=== PATIENT | male | born 1950 | race Asian ===

== ENCOUNTER 2023-08-24 19:25 | Inpatient (IN) | payer OTHER, SELFPAY ==
[2023-08-24 14:43] VITALS: BP 143/81
[2023-08-24 15:08] LABS: % Basophils 0.5 % (0-2); % Eosinophils 4.5 % (0-6); % Immature Granulocytes 0.3 % (0-0.5); % Lymphocytes 36.8 % (20.5-51.1); % Monocytes 8.5 % (1.7-9.3); % Neutrophils 49.4 % (42.2-75.2); Absolute Eosinophils 0.2 10^3/uL (0-0.7); Absolute Lymphocytes 1.5 10^3/uL (1.2-3.4); Absolute Monocytes 0.3 10^3/uL (0.1-0.6); Hematocrit 36.5 % (39.0-52.0); Hemoglobin 12.6 g/dL (13.0-18.0); Mean Corp Hgb Conc. 34.5 g/dL (33.0-37.0); Mean Corpuscular Hgb 32.3 pg (27.0-31.0); Mean Corpuscular Volume 93.6 fL (80.0-94.0); Mean Platelet Volume 11.3 fL (7.4-10.4); Nucleated Red Blood Cells % 0 % (-); Platelet Count 169 10^3/uL (130-400); Red Cell Dist. Width 13.2 % (11.5-14.5)
[2023-08-24 15:35] LABS: ALT (SGPT) 23 U/L (0-50); AST (SGOT) 36 U/L (17-59); Alkaline Phosphatase 56 U/L (38-126); Blood Urea Nitrogen 23 mg/dl (9-20); Calcium 9.8 mg/dl (8.4-10.2); Carbon Dioxide 25 mmol/L (22-30); Chloride 107 mmol/L (98-107); Glucose 129 mg/dl (70-99); Potassium 3.8 mmol/L (3.5-5.1); Sodium 140 mmol/L (135-145); Total Bilirubin 0.8 mg/dl (0.2-1.3); Total Protein 7.2 g/dl (6.3-8.2); eGFR > 60.00
[2023-08-24 15:40] LABS: Troponin I < 0.012 ng/ml
[2023-08-24 15:47] LABS: Albumin 4.9 g/dl (3.5-5.0)
[2023-08-24 18:03] VITALS: BMI 26.3
[2023-08-24 18:07] VITALS: BP 137/85
--- NOTE | 2023-08-24 18:12 | ED.GENMED ---
History of Present Illness
General
Chief Complaint: Dizziness
Source: patient
Exam Limitations: none
Time Seen by Provider: 08/24/23 17:59
Nursing documentation reviewed up to this point in time: agreed with
Travel History
Have you had any contact with someone who has COVID-19?: No
Do you have any symptoms of coronavirus? Fever > 100 degrees, chills, cough, shortness of breath, sore throat, loss of taste or smell, muscle aches, or headache?: No
History of Present Illness
History of Present Illness:
72 y/o M with h/o CABG x 3 20 years ago
followed by a online journalist at [facility], named dr. Nice
has josr having ongoing lightheadedness, raven with walking
no cp, sob
he followed up with dr. nice on august 10 and has been wearing a holter monitor
got a notiication toay from the office saying that he needed to come tot he ER because he could have possibly been in heart block.
pt is not having any symptoms currently
denies cp,sob, syncope, vomiting, fever
Past History
Past History
ED Past Medical History: CAD, HTN, Hypercholesterolemia and NIDDM
ED Past Surgical History: Cardiac (CABG)
Social History
Tobacco: Non-smoker
Alcohol: Occasional
Drug: None
Personal:
Living: with family
Review of Systems
Review of Systems
Allergies reviewed?: Yes
All Other Systems: Not applicable
Phy Exam
Physical Exam
Physical Exam:
GENERAL: Alert , in no apparent distress
EYE: pupils equal and reactive
NECK: Supple
ENT: o/p clr, mmm.
CARDIAC: aj, minimal edema, no murmur
LUNGS: Clear breath sounds bilaterally, no acute respiratory distress, no wheezes/rales/rhonchi
ABDOMEN: Soft, without focal tenderness, no r/g, no cvat, normal bowel sounds
NEUROLOGICAL: Alert and oriented, no focal neuro deficits
SKIN: Warm and dry, skin intact.
MUSCULOSKELETAL: No edema, well perfused. neg nima's sign
PSYCH: Normal and appropriate interaction.
Course
Orders/Labs/Results
Orders:
Orders
08/24/23 14:47
Electrocardiogram (*1) Urgent
Reason for Study: Vertigo / Dizzy
EKG- Treatment ONCE
08/24/23 15:00
Complete Blood Count/With Diff Urgent
Comprehensive Metabolic Panel Urgent
Magnesium Urgent
TSH Reflex To Free T4 Urgent
Comment: ADD ON
Troponin I Urgent
08/24/23 18:18
Electrocardiogram (*1) Urgent
Reason for Study: Bradycardia / Tachycardia
EKG- Treatment ONCE
08/24/23 18:19
Add On- LAB Urgent
Tests Added?: tsh reflex t4, magnesium
08/24/23 18:46
Admit/Transfer Patient As Directed
Co-Sign Provider:
Level of Care: Inpatient admission
Assign to:: IVU
Physician / Group: saumya
Diagnosis: symptomatic heart block
Reason for Hospitalization: symptomatic heart block
Expected length of stay greater than two midnights?: Yes
ELOS- Estimated Length of Stay in days: 2
I certify the patient meets the requirements for IP care: Yes
Code Status As Directed
Resuscitation Status: Full Code
Abnormal Lab Results
08/24/23
15:00
WBC 4.0 L 10^3/uL
(4.8-10.8)
RBC 3.90 L 10^6/uL
(4.70-6.10)
Hgb 12.6 L g/dL
(13.0-18.0)
Hct 36.5 L %
(39.0-52.0)
MCH 32.3 H pg
(27.0-31.0)
MPV 11.3 H fL
(7.4-10.4)
BUN 23 H mg/dl
(9-20)
Glucose 129 H mg/dl
(70-99)
08/24/23 15:00
08/24/23 15:00
Vital Signs
Initial and Last Documented VS:
Initial Vital Signs
Temp Pulse Resp BP Pulse Ox
98 F 65 18 143/81 98
08/24/23 14:43 08/24/23 14:43 08/24/23 14:43 08/24/23 14:43 08/24/23 14:43
Last Documented Vital Signs
Temp Pulse Resp BP Pulse Ox
98 F 58 11 137/85 100
08/24/23 14:43 08/24/23 18:45 08/24/23 18:45 08/24/23 18:07 08/24/23 18:45
MDM/Problems Addressed
Differential Diagnosis Includes:
heart block, orthostatic hypotension
MDM/Problems Addressed:
72-year-old male status post remote CABG presents after being called by the online journalist office saying that his Holter monitor was suspicious for complete heart block. Patient has been having episodic lightheadedness especially with walking over
the last several weeks to months. Apparently he had this also last year but was in a first-degree block. He he has been wearing a Holter since August 10. He has had no syncope, chest pain, shortness of breath. Today around 1 PM the family got a
phone call from the online journalist office saying he needed to come to the ER and that his [facility] online journalist Dr. Nice had notified Dr. Jean Baptiste from [facility] and that the patient would be admitted for pacemaker. He is hemodynamically stable currently
without symptoms. His initial EKG looks like first degrees block sinus bradycardia with a pause however on the monitor it does look suspicious for complete heart block. I spoke with the on-call online journalist Dr. Surya valdez who is aware of him
and said that he should be placed in the IVU, n.p.o. after midnight and they will see him in the morning.
*Critical Care Note
Total Time (30-74mins, 75-104mins- exclusive of procedures): Not Applicable
ED Attending Note
-
Portions of this chart may have been created with voice recognition software.� Occasional wrong word or��sound alike� substitutions may have occurred due to the inherent limitations of voice recognition software.
Discharge Plan
Departure
Patient Disposition: Admit
Date of Disposition: 08/24/23
Time of Disposition: 18:19
Admit to: IVU
Presentation/result/management discussed w/ accepting MD/DO: Hospitalist
Patient with high blood pressure during this ER visit?: No
Condition: Fair
Covid-19: Not Applicable
Discharge Problem:
Complete heart block
Prescriptions:
No Action
latanoprost 0.005 % Drops
1 drp BOTH EYES HS
metformin 500 mg Tablet
500 mg PO BID
carvedilol 25 mg Tablet
25 mg PO BID
amlodipine 2.5 mg Tablet
2.5 mg PO BID
aspirin 81 mg Tablet,Delayed Release (Dr/Ec)
81 mg PO HS
gemfibrozil 600 mg Tablet
600 mg PO BID
dorzolamide-timolol 22.3-6.8 mg/mL Drops
1 drp BOTH EYES BID
allopurinol 300 mg Tablet
300 mg PO BID
telmisartan 20 mg Tablet
20 mg PO HS
ezetimibe 10 mg Tablet
10 mg PO DAILY
rosuvastatin 10 mg Tablet
10 mg PO DAILY
Interventions
Interventions:
*Risk Screen - Suicide Last Done: 08/24/23 18:03
*General Assessment Last Done: 08/24/23 18:03
*Neglect/Abuse Screening Last Done: 08/24/23 18:03
ED- Fall Risk Assessment Last Done: 08/24/23 18:03
*ED COVID-19 Vaccine History Last Done: 08/24/23 18:03
ED- Cardiac Assessment Last Done: 08/24/23 18:03
ED- Neurological Assessment Last Done: 08/24/23 18:03
ED Swallowing Screen Last Done: 08/24/23 18:50
Discharge Date and Time
Print Language: English
--- NOTE | 2023-08-24 18:50 | HPS.HSE ---
Family Physician
-
Family Physician:
Chief Complaint
-
dizziness
History of Present Illness
72-year-old Bengali speaking male past medical history of CABG 20 years ago, hypertension, type 2 diabetes, hyperlipidemia, gout presenting for lightheadedness with walking ongoing for the past year. History obtained from patient's daughter.
Dizziness occurs with exertion or any light changes in position. No chest pain or shortness of breath. His paper machine back tender is Dr. Cantu at [facility] who he saw on August 10 and has been wearing a Holter monitor. Today he received a call from their
office stating that he needed to come to the ER because she could have been in heart block. Patient denies any symptoms currently.
Medical History
Past Medical History
Past Medical History: Reports Other (CABG 20 years ago, hypertension, type 2 diabetes, hyperlipidemia, gout)
Past Surgical History: Reports Other (CABG )
Social History
Tobacco: Non-smoker
Alcohol: Occasional
Drug: None
Family History
Family History: Not pertinent
Allergies / Home Medications
Allergies reflects when Allergies were last updated in [employer].
Home Medications with original date entered in [employer]
Allergy/Medication List:
Allergies
Allergy/AdvReac Type Severity Reaction Status Date / Time
No Known Allergies Allergy Unverified 08/24/23 14:42
Home Medications
allopurinol 300 mg tablet 300 mg PO BID 08/24/23
amlodipine 2.5 mg tablet 2.5 mg PO BID 08/24/23
aspirin 81 mg tablet,delayed release 81 mg PO HS 08/24/23
carvedilol 25 mg tablet 25 mg PO BID 08/24/23
dorzolamide 22.3 mg-timolol 6.8 mg/mL eye drops 1 drp BOTH EYES BID 08/24/23
ezetimibe 10 mg tablet 10 mg PO DAILY 08/24/23
gemfibrozil 600 mg tablet 600 mg PO BID 08/24/23
latanoprost 0.005 % eye drops 1 drp BOTH EYES HS 08/24/23
metformin 500 mg tablet 500 mg PO BID 08/24/23
rosuvastatin 10 mg tablet 10 mg PO DAILY 08/24/23
telmisartan 20 mg tablet 20 mg PO HS 08/24/23
Review of Systems
-
History Source: Patient
A 12 point ROS was completed and negative except as noted: Yes
Constitutional: Reports No Symptoms
EENT: Reports No Symptoms
Respiratory: Reports No Symptoms
Cardiac: Reports No Symptoms
Abdomen/GI: Reports No Symptoms
: Reports No Symptoms
Musculoskeletal: Reports No Symptoms
Skin: Reports No Symptoms
Neurological: Reports No Symptoms
Endocrine: Reports No Symptoms
Hematologic/Lymphatic: Reports No Symptoms
Psych: Reports No Symptoms
Physical Exam
Vital Signs
Vital Signs
Temp Pulse Resp BP Pulse Ox
98 F 65 17 137/85 99
08/24/23 14:43 08/24/23 18:30 08/24/23 18:30 08/24/23 18:07 08/24/23 18:30
Physical Exam
General: Well Developed, Well Nourished and No Apparent Distress
HEENT: NormoCephalic, Moist mucous membranes and Atraumatic
Respiratory: Clear
Cardiac: S1/S2 and Regular Rhythm; No Murmur or Rub
GI: Soft, Non Tender, Non Distended and Normal Bowel Sounds; No Organomegaly
Rectal: Deferred by Provider
Musculoskeletal: No Clubbing, No Cyanosis and No Edema
Skin: No Rash
Neuro: Nonfocal/grossly intact
Laboratory Results
-
08/24/23 15:00
08/24/23 15:00
Laboratory Results
Total Bilirubin 0.8 mg/dl (0.2-1.3) 08/24/23 15:00
AST 36 U/L (17-59) 08/24/23 15:00
ALT 23 U/L (0-50) 08/24/23 15:00
Alkaline Phosphatase 56 U/L (38-126) 08/24/23 15:00
Troponin I < 0.012 ng/ml 08/24/23 15:00
Data Reviewed
-
Lab Data: Labs Reviewed by me
Old Records: Reviewed
Impression/Plan
-
IMPRESSION:
PLAN:
# Symptomatic possibly complete heart block exacerbated by Coreg
-EKG shows sinus bradycardia with first-degree AV block
-Patient hemodynamically stable without symptoms at this time
-P.o. pastmidnight for possible pacemaker tomorrow
-Hold Coreg
-Cardiology consulted
# Leukopenia unknown chronicity
-Outpatient follow-up
CAD status post CABG
-Continue aspirin
-Hold Coreg
Essential hypertension
-Continue amlodipine, telmisartan
Type 2 diabetes
-Hold metformin
-Insulin sliding scale
Hyperlipidemia
-Continue Zetia, gemfibrozil, statin
Gout
-Continue allopurinol
Full code
DVT prophylaxis�heparin
N.p.o. past midnight
[2023-08-24 18:51] LABS: Magnesium 2.1 mg/dl (1.6-2.3)
[2023-08-24 19:00] VITALS: BP 140/84
[2023-08-24 20:00] VITALS: BP 131/79
[2023-08-24 20:45] VITALS: BP 140/87
[2023-08-24 21:49] VITALS: BP 123/83
[2023-08-24] MEDS: NORVASC 2.5 MG PO (21:51)
[2023-08-24] MEDS: ASPIR LOW (ENTERIC COATED) 81 MG PO (21:51)
[2023-08-24] MEDS: COZAAR 25 MG PO (21:51)
[2023-08-24] MEDS: HEPARIN 5000 UNITS SC (21:51)
[2023-08-24] MEDS: ZYLOPRIM 300 MG PO (21:52)
[2023-08-24] MEDS: LOPID 600 MG PO (21:58)
[2023-08-24] MEDS: COSOPT EYE DROPS 1 DROP BOTH EYES (21:58)
[2023-08-24] MEDS: XALATAN OPHTHALMIC SOLUTION 1 DROP BOTH EYES (21:58)
[2023-08-24 22:18] LABS: Glucose - Point of Care 147 mg/dl (70-99)
[2023-08-24 22:24] VITALS: BMI 25.8
--- NOTE | 2023-08-24 22:28 | PTCARENOTE ---
Admission completed with the help of daughter BECK- [phone]. dgt. states that she will be here in the morning- after she drops her dgt off at school.
[2023-08-25] VITALS (8 sets, daily range): BP systolic 117–151; BP diastolic 73–92
[2023-08-25 05:09] LABS: % Basophils 0.2 % (0-2); % Eosinophils 4.5 % (0-6); % Immature Granulocytes 0.2 % (0-0.5); % Lymphocytes 41.5 % (20.5-51.1); % Monocytes 9.3 % (1.7-9.3); % Neutrophils 44.3 % (42.2-75.2); Absolute Eosinophils 0.2 10^3/uL (0-0.7); Absolute Lymphocytes 1.8 10^3/uL (1.2-3.4); Absolute Monocytes 0.4 10^3/uL (0.1-0.6); Hematocrit 36.5 % (39.0-52.0); Hemoglobin 12.5 g/dL (13.0-18.0); Mean Corp Hgb Conc. 34.2 g/dL (33.0-37.0); Mean Corpuscular Hgb 32.1 pg (27.0-31.0); Mean Corpuscular Volume 93.6 fL (80.0-94.0); Mean Platelet Volume 11.7 fL (7.4-10.4); Nucleated Red Blood Cells % 0 % (-); Platelet Count 191 10^3/uL (130-400); Red Cell Dist. Width 13.2 % (11.5-14.5); White Blood Cell Count 4.4 10^3/uL (4.8-10.8)
[2023-08-25 06:16] LABS: ALT (SGPT) 22 U/L (0-50); AST (SGOT) 28 U/L (17-59); Albumin 4.5 g/dl (3.5-5.0); Alkaline Phosphatase 58 U/L (38-126); Blood Urea Nitrogen 18 mg/dl (9-20); Calcium 8.9 mg/dl (8.4-10.2); Carbon Dioxide 23 mmol/L (22-30); Chloride 111 mmol/L (98-107); Estimated Creatinine Clearance 71 ml/min; Glucose 108 mg/dl (70-99); Potassium 4.1 mmol/L (3.5-5.1); Sodium 140 mmol/L (135-145); Total Bilirubin 0.9 mg/dl (0.2-1.3); Total Protein 6.7 g/dl (6.3-8.2); eGFR > 60.00
--- NOTE | 2023-08-25 06:54 | W.PN.HOSP.TC ---
Today's Communication/Plan
-
cont hold Coreg
NPO after midnight for PPM as per Cardio
glycemic control
blood pressure control
Assessment / Plan
Assessment / Plan
Physical Exam
General: Well Developed, Well Nourished and No Apparent Distress
HEENT: NormoCephalic, Moist mucous membranes and Atraumatic
Respiratory: Clear
Cardiac: S1/S2 and Regular Rhythm; No Murmur or Rub
GI: Soft, Non Tender, Non Distended and Normal Bowel Sounds; No Organomegaly
Musculoskeletal: No Clubbing, No Cyanosis and No Edema
Skin: No Rash
Neuro: Alert Oriented Conversant
72-year-old Kazakh speaking male past medical history of CABG 20 years ago, hypertension, type 2 diabetes, hyperlipidemia, gout here for lightheadedness dizziness outpt heart monitor concerning for symptomatic Bradycardia.
# Symptomatic possible complete heart block exacerbated by Coreg
-EKG showed sinus bradycardia with first-degree AV block
-Home Coreg on hold
-ECHO appreciated EF 55-60% no significant change from prior ECHO 2021
-Cardiology consult appreciated npo after midnight for pacemaker placement 08/25
# Leukopenia unknown chronicity
-monitor, trending up
CAD status post CABG
-Continue aspirin
-Hold Coreg
Essential hypertension
-Continue amlodipine, ARB
Type 2 diabetes
-A1c 6.8
-Hold metformin
-Insulin sliding scale
Hyperlipidemia
-Continue Zetia, gemfibrozil, statin
Gout
-Continue allopurinol
Full code
DVT prophylaxis�heparin
Discussed with patient, patient's daughter Abiodun who is also an ICU nurse, and Cardiology
I spent a total of 60 minutes with the patient or on the floor. More than 50% of this time involved counseling and coordination of care.
Anticipated Discharge: 24 - 48 hours
Subjective/Interval History
-
Date of Service: August 25, 2023
Seen an examined at bedside in no acute distress sitting up comfortably in chair. Daughter Nam present providing translation
Objective Data
-
Labs:
Laboratory Results
08/25/23 08/25/23
04:46 05:51
WBC 4.4 L
Hgb 12.5 L
Hct 36.5 L
Plt Count 191
Sodium Cancelled 140
Potassium Cancelled 4.1
Chloride Cancelled 111 H
Carbon Dioxide Cancelled 23
BUN Cancelled 18
Creatinine Cancelled 0.9
Glucose Cancelled 108 H
Calcium Cancelled 8.9
Total Bilirubin Cancelled 0.9
AST Cancelled 28
ALT Cancelled 22
Alkaline Phosphatase Cancelled 58
Vital Signs:
Vital Signs
Temp Pulse Resp BP Pulse Ox
97.8 F 66 18 127/74 98
08/25/23 04:54 08/25/23 04:41 08/25/23 04:54 08/25/23 04:41 08/25/23 04:54
[2023-08-25 07:10] LABS: Glucose - Point of Care 110 mg/dl (70-99)
--- NOTE | 2023-08-25 08:06 | CON.CAR ---
Addendum entered and electronically signed by Peter Gannon DO 08/25/23 16:42:
I saw and examined the patient.
The [employer] Developer [employer]'s note was reviewed and I agree with the note.
Comment:
Plan:
Patient had Zio monitor 07/2023 due to patient complaints of dizziness. This showed brief high grade av block and patient was referred to for evaluation for PPM.
Pt with 1st degree av block and wenckebach however no pauses or high grade av block with being off beta cruz.
Check echo
Could consider monitor off beta cruz however, if pt requires beta cruz as he has hx of CABG he may ultimately require a PPM.
EP reviewed and discussed PPM with pt and family. Plan if for PPM prior to d/c
Original Note:
Consultation
Consultation Request
Date/Time Consultation Performed: 08/25/23
Requesting Provider: Dr. Shell
Performing Provider: Mery Osorio PA-C for Dr. Gannon
Reason for Consultation: bradycardia, intermittent dizziness
Medical History
-
Chief Complaint: AV block
History of Present Illness:
Patient is a 72-year-old male with past medical history of CAD status post CABG x3 in 2000, hypertension, hyperlipidemia, diabetes who presented to [facility] for evaluation of abnormal heart rhythm by outpatient ZIO monitor, ordered by
patient's horologist, Dr. Do. He has a history of first-degree AV block and intermittent second-degree AV block by prior Holter monitor in 2021. He was seen by Dr. Ferrer on 08/11/2023 and complained of some intermittent dizziness. He reports this
is mostly associated with turning, or with standing up from a seated position. By review of ER record, also with walking although did not admit this to me. He denies near-syncope or syncope, CP, SOB. He had a 3-day ZIO monitor placed. He was noted
to have brief high-grade AV block noted on monitor, and referred to [facility] for possible PPM placement. He is on coreg 25mg BID as OP, last dose 4/1 AM. EKG SB with 1st degree av block. Denies recent medications, thyroid disease. Cardiology consulted
for evaluation.
PMH:
CABG x4 in 2000
HTN
HLD
DM2
History of retinal branch artery occlusion in R eye
Past Medical History
Past Medical History: Other (in HPI)
Social History
Tobacco: Non-Smoker
Alcohol: Occasional
Personal:
Living: With Family
Employment: Retired
Allergies / Home Medications
Allergy/AdvReac Type Severity Reaction Status Date / Time
No Known Allergies Allergy Unverified 08/24/23 14:42
�Medication �Instructions �Recorded �Confirmed �Type
allopurinol 300 mg tablet 300 mg PO BID Gout 08/24/23 08/24/23 History
amlodipine 2.5 mg tablet 2.5 mg PO BID Blood Pressure 08/24/23 08/24/23 History
aspirin 81 mg tablet,delayed 81 mg PO HS Blood Clot 08/24/23 08/24/23 History
release Prevention/Tx
carvedilol 25 mg tablet 25 mg PO BID Blood Pressure 08/24/23 08/24/23 History
dorzolamide 22.3 mg-timolol 6.8 1 drp BOTH EYES BID Eye Condition 08/24/23 08/24/23 History
mg/mL eye drops
ezetimibe 10 mg tablet 10 mg PO DAILY High Cholesterol 08/24/23 08/24/23 History
gemfibrozil 600 mg tablet 600 mg PO BID High Cholesterol 08/24/23 08/24/23 History
latanoprost 0.005 % eye drops 1 drp BOTH EYES HS Eye Condition 08/24/23 08/24/23 History
metformin 500 mg tablet 500 mg PO BID Diabetes 08/24/23 08/24/23 History
rosuvastatin 10 mg tablet 10 mg PO DAILY High Cholesterol 08/24/23 08/24/23 History
telmisartan 20 mg tablet 20 mg PO HS Heart Disease/Condition 08/24/23 08/24/23 History
Review of Systems
-
History Source: Patient
All other systems: Negative unless noted
Physical Exam
Vital Signs
Temp Pulse Resp BP Pulse Ox
98 F 56 16 127/74 99
08/25/23 07:23 08/25/23 07:23 08/25/23 07:23 08/25/23 04:41 08/25/23 07:23
Lab Results
08/25/23 04:46
08/25/23 05:51
Troponin I < 0.012 ng/ml 08/24/23 15:00
Physical Exam
General: No Apparent Distress and Comfortable
HEENT: Normocephalic, Anicteric and Moist Mucous Membranes
Respiratory: Clear and Non Labored Respirations
Cardiac: S1/S2 and Regular Rhythm
GI: Soft, Non Tender, Non Distended and Normal Bowel Sounds
Musculoskeletal: No Clubbing, No Cyanosis and No Edema
Skin: Warm and Dry
Neuro: AO x 3
Impression / Plan
-
Primary Director Of Accounting: Dr. Do
Assessment:
Presentation with transient high grade av block by OP Zio monitor 08/10-08/14/23
Dizziness
History of 1st and 2nd degree av block by prior Holter monitor in 2021
CABG x4 in 2000
HTN
HLD
DM2
History of retinal branch artery occlusion in R eye
ECHO 01/2022: Preserved EF, stage 2 diastolic dysfunction, dilated LA
ZIO monitor 08/10-: Minimum heart rate of 28 bpm, max of 105 and average of 64. Predominantly underlying sinus rhythm with first-degree AV block. 3 episodes of third-degree AV block occurred lasting a total of 29 seconds. Wenckebach was
present. Wenckebach was detected within 45 seconds of symptomatic patient event. Rare ectopy also noted.
Plan:
-Patient had Zio monitor 07/2023 due to patient complaints of dizziness. This showed brief high grade av block and patient was referred to for evaluation for PPM.
-zio report summary as above
-review of tele overnight with 1st degree av block and wenckebach however no pauses or high grade av block noted thus far. HR presently in 60s
-no complaints of dizziness overnight per nursing. patient ambulatory around room this AM
-he takes coreg 25mg BID as OP. last dose 08/23 AM. continue washout and follow on tele
-check echo, last from 2021 as able
-TSH WNL
-check ortho VS
-remains NPO for now. may require ppm this admission
-d/w nursing and hospitalist
Data Reviewed
-
EKG: Tracing Personally Visualized and interpreted
Medical Tests (Nuc Med, Echo etc): Report Reviewed by me
Labs: Labs Reviewed by me
Old Records: Reviewed
[2023-08-25] MEDS: HEPARIN SC (08:39)
[2023-08-25 08:44] LABS: Glycohemoglobin (HgbA1c) 6.8 % (4.0-5.6)
[2023-08-25] MEDS: ZETIA 10 MG PO (08:59)
[2023-08-25] MEDS: CRESTOR 10 MG PO (08:59)
[2023-08-25] MEDS: NORVASC 2.5 MG PO ×2 (08:59→19:42)
[2023-08-25] MEDS: ZYLOPRIM 300 MG PO ×2 (08:59→19:42)
[2023-08-25] MEDS: LOPID 600 MG PO ×2 (08:59→19:42)
[2023-08-25] MEDS: COSOPT EYE DROPS 1 DROP BOTH EYES ×2 (09:00→19:43)
--- NOTE | 2023-08-25 09:42 | CM ---
Reviewed chart. Met with and Mrs. Bowen and their daughter to review discharge plans. Daughter states prior to admission her parents reside in a first floor condo with two steps to enter. Prior to admission he was independent with ambulation and
adls. He has a glucometer at home. He has a prescription plan and uses [facility]. Medical work-up in progress. The discharge plan is to return home with his spouse when medically stable.
[2023-08-25 11:51] LABS: Glucose - Point of Care 110 mg/dl (70-99)
[2023-08-25 14:50] LABS: Glucose - Point of Care 112 mg/dl (70-99)
--- NOTE | 2023-08-25 16:16 | W.PN.UPDATE ---
Update Note
Progress Note Update
Patient seen at the bedside with his present and I had a discussion via the phone with his daughter Abiodun who is an ICU nurse at the [facility] for an additional 15 minutes.
Reviewed the patient's outpatient monitor which demonstrates periods of dizziness and AV block which appears to be complete although upon presentation here he has been sinus with a first-degree AV delay and periods of 3-2 WenkeBach periodicity noted
in the emergency room. He has prior history of coronary bypass and need for beta-blockade for decrease myocardial oxygen demand. We have held his Coreg 25 mg twice daily since admission and thankfully we have not seen more advanced AV block off of
medications. I spoke with family and daughter at length including risk benefits and treatment alternatives to dual-chamber pacemaker implantation via the left deltopectoral groove. He signed informed consent. Plan is for dual-chamber pacemaker
tomorrow and patient, and daughter are in agreement. He will be kept n.p.o. after midnight. He did eat a late lunch today so will add on for tomorrow.
I took time to answer all questions.
[2023-08-25 17:47] LABS: Glucose - Point of Care 104 mg/dl (70-99)
[2023-08-25] MEDS: HEPARIN 5000 UNITS SC (19:42)
[2023-08-25] MEDS: XALATAN OPHTHALMIC SOLUTION 1 DROP BOTH EYES (22:13)
[2023-08-25] MEDS: COZAAR 25 MG PO (22:13)
[2023-08-25] MEDS: ASPIR LOW (ENTERIC COATED) 81 MG PO (22:13)
[2023-08-25 22:22] LABS: Glucose - Point of Care 108 mg/dl (70-99)
[2023-08-26] VITALS (15 sets, daily range): BP systolic 99–145; BP diastolic 75–90; BMI 25.2
--- NOTE | 2023-08-26 03:51 | PTCARENOTE ---
Assumed care of patient at change of shift. Patient ambulates self in room, and reports having dizziness at time. Patient instructed to ring for assistance if an episode occurs. Tele monitor intermittently shows SR w/ 1st AV block or Second degree
type 1 HB. HR in the 40-60's. Patient aware to remain NPO at midnight. Translation provided in patients [place] language (Syriac speaking). Call bonilla in reach.
[2023-08-26 04:34] LABS: Hematocrit 39.1 % (39.0-52.0); Hemoglobin 13.1 g/dL (13.0-18.0); Mean Corp Hgb Conc. 33.5 g/dL (33.0-37.0); Mean Corpuscular Volume 95.6 fL (80.0-94.0); Mean Platelet Volume 11.1 fL (7.4-10.4); Platelet Count 156 10^3/uL (130-400); Red Blood Cell Count 4.09 10^6/uL (4.70-6.10); Red Cell Dist. Width 13.1 % (11.5-14.5); White Blood Cell Count 4.4 10^3/uL (4.8-10.8)
[2023-08-26 05:23] LABS: Blood Urea Nitrogen 23 mg/dl (9-20); Calcium 9.4 mg/dl (8.4-10.2); Carbon Dioxide 22 mmol/L (22-30); Chloride 109 mmol/L (98-107); Estimated Creatinine Clearance 71 ml/min; Glucose 97 mg/dl (70-99); Magnesium 2.2 mg/dl (1.6-2.3); Phosphorus 4.7 mg/dl (2.5-4.5); Potassium 4.1 mmol/L (3.5-5.1); Sodium 139 mmol/L (135-145); eGFR > 60.00
--- NOTE | 2023-08-26 08:36 | W.PN.HOSP.TC ---
Today's Communication/Plan
-
NPO for pacemaker placement today as per cardio
glycemic control
blood pressure control
follow up post-op recommendations
Assessment / Plan
Assessment / Plan
Physical Exam
General: Well Developed, Well Nourished and No Apparent Distress
HEENT: NormoCephalic, Moist mucous membranes and Atraumatic
Respiratory: Clear
Cardiac: S1/S2 and Regular Rhythm; No Murmur or Rub
GI: Soft, Non Tender, Non Distended and Normal Bowel Sounds; No Organomegaly
Musculoskeletal: No Clubbing, No Cyanosis and No Edema
Skin: No Rash
Neuro: Alert Oriented Conversant
72-year-old Sami speaking male past medical history of CABG 20 years ago, hypertension, type 2 diabetes, hyperlipidemia, gout here for lightheadedness dizziness outpt heart monitor concerning for symptomatic Bradycardia.
# Symptomatic possible complete heart block exacerbated by Coreg
-EKG showed sinus bradycardia with first-degree AV block
-Home Coreg on hold
-ECHO appreciated EF 55-60% no significant change from prior ECHO 2021
-Cardiology consult appreciated npo for pacemaker placement today 08/25
# mild Leukopenia unknown chronicity
-monitor
CAD status post CABG
-Continue aspirin
-Hold Coreg
Essential hypertension
-Continue amlodipine, ARB
Type 2 diabetes
-A1c 6.8
-Hold metformin
-Insulin sliding scale
Hyperlipidemia
-Continue Zetia, gemfibrozil, statin
Gout
-Continue allopurinol
Full code
DVT prophylaxis�heparin
Discussed with patient, patient's daughter Abiodun who is also an ICU nurse, and Cardiology
I spent a total of 60 minutes with the patient or on the floor. More than 50% of this time involved counseling and coordination of care.
Anticipated Discharge: 24 - 48 hours
Subjective/Interval History
-
Date of Service: August 26, 2023
Seen and examined at bedside in no acute distress resting comfortably in bed. Denies new acute issues at this time. NPO awaiting pacemaker placement. Daughter and present during evaluation.
Objective Data
-
Labs:
Laboratory Results
08/26/23
04:13
WBC 4.4 L
Hgb 13.1
Hct 39.1
Plt Count 156
Sodium 139
Potassium 4.1
Chloride 109 H
Carbon Dioxide 22
BUN 23 H
Creatinine 0.9
Glucose 97
Calcium 9.4
Vital Signs:
Vital Signs
Temp Pulse Resp BP Pulse Ox
97.7 F 55 20 124/80 94
08/26/23 07:56 08/26/23 08:00 08/26/23 07:56 08/26/23 07:58 08/26/23 07:56
I&O
08/25/23 08/26/23 08/27/23
06:59 06:59 06:59
Intake Total 240 / 240
Balance 240 / 240
[2023-08-26] MEDS: ZETIA 10 MG PO (09:14)
[2023-08-26] MEDS: ZYLOPRIM 300 MG PO ×2 (09:14→19:56)
[2023-08-26] MEDS: LOPID 600 MG PO ×2 (09:14→19:56)
[2023-08-26] MEDS: CRESTOR 10 MG PO (09:14)
[2023-08-26] MEDS: NORVASC 2.5 MG PO ×2 (09:19→19:56)
[2023-08-26] MEDS: COSOPT EYE DROPS 1 DROP BOTH EYES ×2 (09:20→20:01)
[2023-08-26] MEDS: HEPARIN SC (09:33)
--- NOTE | 2023-08-26 09:51 | PTCARENOTE ---
Pt AAOx3, w/no c/o CP or SOB. Pt w/family at bedside this AM & daughter translating for pt. Pt awaiting PPM placement this AM. VS stable. Pt w/call bonilla within reach & plan of care ongoing.
--- NOTE | 2023-08-26 12:29 | CM ---
CM following for DC planning needs.
Met w/ patient and family at bedside.
Patient is anticipating PPM today.
Anticipated DC plan is for home, no needs.
CM to follow.
[2023-08-26 13:28] LABS: Glucose - Point of Care 78 mg/dl (70-99)
--- NOTE | 2023-08-26 16:09 | W.PN.UPDATE ---
Update Note
Progress Note Update
Discussed with patient and at bedside using [employer] phone/language line (g[employer] #[phone]) regarding implantation of pacemaker. We discussed pacemaker indications and device implant in detail. For implant there is an approximate 1:1000
risk of RI/stroke/ and a 1% risk of pneumothorax/tamponade/infection/bleeding. We also discussed post procedure implant restrictions including positions to avoid with implant arm for first six weeks after implant as well as driving
restrictions. I took time to answer all questions. Patient verbalized understanding of procedure and agreed with plan. Consent signed. Patient remains NPO.
[2023-08-26 16:13] LABS: Glucose - Point of Care 83 mg/dl (70-99)
--- NOTE | 2023-08-26 16:26 | PTCARENOTE ---
Report given to EP chemical laboratory chief; Pt taken to EP lab in his bed. Pt's spouse waiting in rm while pt is getting new PPM.
--- NOTE | 2023-08-26 18:45 | ITS.CL.PACE ---
[employer] - Pacemaker Implant
Pacemaker Implant
Procedure Report:
Primary Burling And Joining Supervisor: Aidan Do MD
Procedure Date: 08/26/2023
Name of procedure:
1. Placement of a dual-chamber pacemaker
2. Subclavian venography
History:
1. Patient is a 72-year-old male with a past medical history significant for CAD with CABG in 2000, hypertension, hyperlipidemia, diabetes mellitus type 2 with symptomatic bradycardia, second-degree type II/high degree AV block noted on monitor
with intermittent second-degree type II AV block.
2. Please refer to H&P for complete history.
Indication:
Symptomatic irreversible bradycardia
Second-degree type II AV block episodes
High degree AV block episodes
Need for AV gustavo blocking agents
Methods:
After informed consent was obtained, the patient was brought to the EP laboratory in a postabsorptive, nonsedated state. Peripheral IV access was established. Prophylactic antibiotics were administered prior to incision. Continuous ECG, blood
pressure, and pulse oximetry were initiated. Cardioversion patch electrodes were placed on the patient's chest and back. A grounding patch was applied to the skin. Sedation was administered by anesthesia.
In order to define the extrathoracic portion of the subclavian vein and exclude significant venous obstruction or anomalous anatomy, subclavian venography was performed prior to the procedure. Using the patient's left peripheral IV, contrast was
injected and images were recorded. The left subclavian vein and SVC were found to be widely patent.
The left chest was prepared and draped in a sterile fashion. A time-out was performed. Local anesthesia was injected in the subcutaneous tissue in the infraclavicular area. An incision was made medial to the deltopectoral groove. The subcutaneous
tissue was dissected the level of the prepectoral fascia. A subcutaneous pocket was created. Under fluoroscopic guidance and with the assistance of the images from the venogram, 2 separate venipunctures were made using micropuncture and modified
Seldinger technique. These were performed in the extrathoracic portion of the subclavian vein. Guidewires were passed and two peel-away sheaths were placed, and used to advance leads into the circulation.
Using fluoroscopic guidance, the leads were positioned. The RV lead was advanced to the RV/outflow tract. Ventricular ectopy was recorded. Images were taken in [place] and [place] views to ensure appropriate lead placement. The lead tip was subsequently
positioned on the apical septum. Adequate sensing and pacing parameters were found, and no diaphragmatic stimulation was seen with high-output pacing.
Next, the right atrial lead was positioned in the right atrial appendage. Adequate sensing and pacing parameters were found, and no diaphragmatic stimulation was seen with high-output pacing. Both sheaths were split, and the leads were secured to
the fascia with Ethibond ties.
The pocket was flushed with antibiotic solution and hemostasis was assured. The generator was connected to the leads and placed inside the pocket. The wound was closed with 3 running layers of absorbable suture, and steri-strips were applied.
Dressing applied over steri-strips in standard fashion.
Following the procedure, the patient was taken to the recovery area in stable condition. A chest x-ray was obtained in the holding area.
Lead parameters and device programming:
- RA Lead (Medtronic, Model 5076, # [id number]): Sensing 1.3 mV, Pacing threshold 1.0 V at 0.4 ms, Imp 630 ohm
- RV Lead (Medtronic, Model 5076, # [id number]): Sensing 18 mV, Pacing threshold 0.5 V at 0.4 ms, Imp 1170 ohm
- Device: Medtronic, Model W1DR01 pacemaker (# [id number]), programmed AAIR to DDDR, mode switch on lower rate 60, upper tracking rate 130; increased AV delay
Conclusions:
1. Successful placement of a dual-chamber pacemaker
2. Subclavian venography
Recommendations:
1. Patient returned to room
2. Portable chest x-ray in recovery area.
3. IV antibiotics while the patient is admitted.
4. OK to resume home medications as indicated
5. Pressure dressing to be removed in AM, aquacell to remain until wound check
6. Follow-up will be arranged in the office in 7-10 days post-discharge
Earl Quesada DO
Clinical Cardiac Manager Imaging
cc: Aidan Do MD
--- NOTE | 2023-08-26 18:50 | PTCARENOTE ---
Rec'd pt back from EP lab AAOX3, w/no c/o CP or SOB. VS stable. L upper chest wall new PPM pacemaker in place. Dressing C/D/I w/no signs or symptoms of bleeding or hematoma. Limb restrictions & bedrest instructions reiterated w/spouse. Plan of care
ongoing.
[2023-08-26 18:52] LABS: Glucose - Point of Care 71 mg/dl (70-99)
[2023-08-26] MEDS: TYLENOL 650 MG PO (19:57)
[2023-08-26] MEDS: HEPARIN 5000 UNITS SC (21:30)
[2023-08-26] MEDS: COZAAR 25 MG PO (21:31)
[2023-08-26] MEDS: ANCEF 5 IV (21:32)
[2023-08-26] MEDS: ASPIR LOW (ENTERIC COATED) 81 MG PO (21:33)
[2023-08-26] MEDS: XALATAN OPHTHALMIC SOLUTION 1 DROP BOTH EYES (21:37)
[2023-08-26 21:53] LABS: Glucose - Point of Care 146 mg/dl (70-99)
--- NOTE | 2023-08-27 00:07 | PTCARENOTE ---
AOX3; pleasant. Tele- SR w/ occ. A-pacing. L chest wall dressing c/d/i. Aware of activity/limb restrictions. C/o pain at incision site 10/01. Tylenol administered. See JUL. Ambulatory in room w/ standby assist; steady gait. Denies any dizziness.
at bedside. Currently in bed; call chad w/in reach.
[2023-08-27 03:22] VITALS: BP 124/83
[2023-08-27 04:24] LABS: Hematocrit 36.7 % (39.0-52.0); Hemoglobin 12.5 g/dL (13.0-18.0); Mean Corp Hgb Conc. 34.1 g/dL (33.0-37.0); Mean Corpuscular Hgb 31.7 pg (27.0-31.0); Mean Corpuscular Volume 93.1 fL (80.0-94.0); Mean Platelet Volume 10.8 fL (7.4-10.4); Platelet Count 157 10^3/uL (130-400); Red Blood Cell Count 3.94 10^6/uL (4.70-6.10); Red Cell Dist. Width 13.1 % (11.5-14.5); White Blood Cell Count 5.7 10^3/uL (4.8-10.8)
[2023-08-27 04:48] LABS: Blood Urea Nitrogen 25 mg/dl (9-20); Calcium 9.1 mg/dl (8.4-10.2); Carbon Dioxide 22 mmol/L (22-30); Chloride 107 mmol/L (98-107); Estimated Creatinine Clearance 71 ml/min; Glucose 88 mg/dl (70-99); Magnesium 2.1 mg/dl (1.6-2.3); Phosphorus 4.9 mg/dl (2.5-4.5); Potassium 4.3 mmol/L (3.5-5.1); Sodium 138 mmol/L (135-145); eGFR > 60.00
[2023-08-27] MEDS: FLUSH (NSS) 1 FLUSH IV (05:02)
[2023-08-27] MEDS: ANCEF 5 IV (05:02)
--- NOTE | 2023-08-27 07:09 | W.PN.HOSP.TC ---
Today's Communication/Plan
-
discharge
Assessment / Plan
Assessment / Plan
Physical Exam
General: Well Developed, Well Nourished and No Apparent Distress
HEENT: NormoCephalic, Moist mucous membranes and Atraumatic
Respiratory: Clear
Cardiac: S1/S2 and Regular Rhythm; No Murmur or Rub
GI: Soft, Non Tender, Non Distended and Normal Bowel Sounds; No Organomegaly
Musculoskeletal: No Clubbing, No Cyanosis and No Edema
Skin: No Rash
Neuro: Alert Oriented Conversant
72-year-old Icelandic speaking male past medical history of CABG 20 years ago, hypertension, type 2 diabetes, hyperlipidemia, gout here for lightheadedness dizziness outpt heart monitor concerning for symptomatic Bradycardia.
# Symptomatic possible complete heart block exacerbated by Coreg
-EKG showed sinus bradycardia with first-degree AV block
-ECHO appreciated EF 55-60% no significant change from prior ECHO 2021
-Cardiology consult appreciated pacemaker placement 08/25, tolerated procedure well.
-follow up CXR notes no pneumothorax
-stable for discharge home with outpatient follow up as per cardiology
# mild Leukopenia resolved
CAD status post CABG
-Continue aspirin
-patient declined restarting Coreg at this time as per cardio recommendations, prefers to follow up with his salvage supervisor Dr Do outpatient to consider resuming then or switching to alternate medication
Essential hypertension
-Continue amlodipine, ARB
Type 2 diabetes
-A1c 6.8
-ok to resume metformin on discharge
-Insulin sliding scale
Hyperlipidemia
-Continue Zetia, gemfibrozil, statin
Gout
-Continue allopurinol
Full code
DVT prophylaxis�heparin
Medically stable for discharge home with outpatient follow up recommendations.
Discussed with patient and his via Icelandic Sill Worker, patient's daughter Abiodun over phone, nurse, and Cardiology
Total Time Preparing Discharge __50 minutes including examination of the patient, summary of the hospital stay, instructions for continuing care to all relevant caregivers; and preparation of discharge records, prescriptions, and referral
forms if necessary.
Anticipated Discharge: Today
Subjective/Interval History
-
Date of Service: August 27, 2023
Seen and examined at bedside in no acute distress ambulating without issues. present during evaluation. Interviewed with [employer] acute care physical therapist. Patient reports overall feeling well though does some pain at incision
site pacemaker. Reports pain is tolerable/manageable with prn Tylenol. Denies new acute issues at this time. Eager to go home. Refusing restart carvedilol, prefers to follow up with his salvage supervisor before considering to resume.
Objective Data
-
Labs:
Laboratory Results
08/27/23
03:37
WBC 5.7
Hgb 12.5 L
Hct 36.7 L
Plt Count 157
Sodium 138
Potassium 4.3
Chloride 107
Carbon Dioxide 22
BUN 25 H
Creatinine 0.9
Glucose 88
Calcium 9.1
Vital Signs:
Vital Signs
Temp Pulse Resp BP Pulse Ox
97.8 F 60 18 124/83 96
08/27/23 03:05 08/27/23 04:00 08/27/23 03:05 08/27/23 03:22 08/27/23 03:05
I&O
08/26/23 08/27/23 08/28/23
06:59 06:59 06:59
Intake Total 240 / 240 300 / 300
Balance 240 / 240 300 / 300
[2023-08-27 07:55] VITALS: BP 146/79
--- NOTE | 2023-08-27 07:56 | W.PN.CARDCBS ---
Addendum entered and electronically signed by Forrest Jean Baptiste MD 08/27/23 11:31:
patient seen and examined
agree with JOSUE Osorio's notes and assessment
agree with JOSUE Osorio's plan
exam:
H&T normocephalic atraumatic
Site clean dry intact
Cor regular
aaoX 3
Assessment:
Presentation with transient high grade av block by OP Zio monitor 08/10-08/14/23
Dizziness
History of 1st and 2nd degree av block by prior Holter monitor in 2021
CABG x4 in 2000
HTN
HLD
DM2
History of retinal branch artery occlusion in R eye
ECHO 01/2022: Preserved EF, stage 2 diastolic dysfunction, dilated LA
ZIO monitor 08/10-: Minimum heart rate of 28 bpm, max of 105 and average of 64. Predominantly underlying sinus rhythm with first-degree AV block. 3 episodes of third-degree AV block occurred lasting a total of 29 seconds. Wenckebach was
present. Wenckebach was detected within 45 seconds of symptomatic patient event. Rare ectopy also noted.
ECHO 08/25/23: EF 55 to 60%, no regional wall motion abnormalities noted, mild TR, mild MR
Plan:
-Patient had Zio monitor 07/2023 due to patient complaints of dizziness. This showed brief high grade av block and patient was referred to for evaluation for PPM.
-s/p Medtronic DC PPM 08/26/23
-no dizziness overnight
-pressure dressing removed. L chest dressing c/d/i
-hgb stable at 12.5
-CXR without PTX
-EKG apaced rhythm. in SR with occasional asensed vpaced rhythm on review of tele overnight
-will resume coreg as now with PPM, perhaps at lower dose as BP trends ok
-echo with results as above
-activity restrictions reviewed with patient and at bedside using google translate
-ok for DC today from cardiac standpoint
-OP wound check with Dr. Quesada, then to return to Dr. Do for further follow up
-d/w nursing
Original Note:
Today's Communication / Plan
-
s/p PPM
resume coreg at lower dose
activity restrictions reviewed with patient and
ok for DC from cardiac standpoint
OP follow up arranged
Impression / Plan
-
Primary Sales Agent [employer]: Dr. Do
Assessment:
Presentation with transient high grade av block by OP Zio monitor 08/10-08/14/23
Dizziness
History of 1st and 2nd degree av block by prior Holter monitor in 2021
CABG x4 in 2000
HTN
HLD
DM2
History of retinal branch artery occlusion in R eye
ECHO 01/2022: Preserved EF, stage 2 diastolic dysfunction, dilated LA
ZIO monitor 08/10-: Minimum heart rate of 28 bpm, max of 105 and average of 64. Predominantly underlying sinus rhythm with first-degree AV block. 3 episodes of third-degree AV block occurred lasting a total of 29 seconds. Wenckebach was
present. Wenckebach was detected within 45 seconds of symptomatic patient event. Rare ectopy also noted.
ECHO 08/25/23: EF 55 to 60%, no regional wall motion abnormalities noted, mild TR, mild MR
Plan:
-Patient had Zio monitor 07/2023 due to patient complaints of dizziness. This showed brief high grade av block and patient was referred to for evaluation for PPM.
-s/p Medtronic DC PPM 08/26/23
-no dizziness overnight
-pressure dressing removed. L chest dressing c/d/i
-hgb stable at 12.5
-CXR without PTX
-EKG apaced rhythm. in SR with occasional asensed vpaced rhythm on review of tele overnight
-will resume coreg as now with PPM, perhaps at lower dose as BP trends ok
-echo with results as above
-activity restrictions reviewed with patient and at bedside using google translate
-ok for DC today from cardiac standpoint
-OP wound check with Dr. Quesada, then to return to Dr. Do for further follow up
-d/w nursing
Progress Note - Sales Agent [employer]
Subjective
Date of Service: August 27, 2023
reports some soreness at device site
Objective
Labs:
08/27/23 03:37
08/27/23 03:37
Labs
Hgb 12.5 g/dL (13.0-18.0) L 08/27/23 03:37
Hct 36.7 % (39.0-52.0) L 08/27/23 03:37
Plt Count 157 10^3/uL (130-400) 08/27/23 03:37
Sodium 138 mmol/L (135-145) 08/27/23 03:37
Potassium 4.3 mmol/L (3.5-5.1) 08/27/23 03:37
BUN 25 mg/dl (9-20) H 08/27/23 03:37
Creatinine 0.9 mg/dL (0.7-1.3) 08/27/23 03:37
Glucose 88 mg/dl (70-99) 08/27/23 03:37
Troponins
08/24/23
15:00
Troponin I < 0.012
Vital Signs and I&O:
Vital Signs
Temp Pulse Resp BP Pulse Ox
97.8 F 60 18 124/83 96
08/27/23 03:05 08/27/23 04:00 08/27/23 03:05 08/27/23 03:22 08/27/23 03:05
Vital Signs
Temp Pulse Resp BP Pulse Ox
97.8 F 60 18 124/83 96
08/27/23 03:05 08/27/23 04:00 08/27/23 03:05 08/27/23 03:22 08/27/23 03:05
Intake & Output
08/24/23 08/25/23 08/26/23 08/27/23
07:59 07:59 07:59 07:59
Intake Total 240 / 240 300 / 300
Balance 240 / 240 300 / 300
Physical Exam
Physical Exam
GEN: No distress, awake, alert, oriented x3. sitting in chair
HEENT: supple, anicteric, mmm, eomi
LUNGS: CTA B/L, no wheezes/rales
CV: Reg, S1/S2, no murmur
ABD: soft, BS+, NT/ND
EXT: No cyanosis, clubbing, edema
NEURO: Gross non-focal
SKIN: Warm, pink, dry. No rash. Pressure dressing removed. L chest dressing c/d/i
[2023-08-27 07:58] LABS: Glucose - Point of Care 110 mg/dl (70-99)
[2023-08-27] MEDS: COSOPT EYE DROPS 1 DROP BOTH EYES (07:58)
[2023-08-27] MEDS: LOPID 600 MG PO (08:18)
[2023-08-27] MEDS: CRESTOR 10 MG PO (08:18)
[2023-08-27] MEDS: ZETIA 10 MG PO (08:18)
[2023-08-27] MEDS: NORVASC 2.5 MG PO (08:18)
[2023-08-27] MEDS: ZYLOPRIM 300 MG PO (08:19)
[2023-08-27] MEDS: TYLENOL 650 MG PO (09:50)
--- NOTE | 2023-08-27 10:13 | W.PN.UPDATE ---
Update Note
Progress Note Update
informed by nursing and hospitalist that patient is refusing coreg. wants to talk to Dr. Do about it before restarting.
--- NOTE | 2023-08-27 10:33 | CM ---
CM following for DC planning needs.
Met w/ patient, spouse at bedside.
Reviewed IMM with assist of translation pauline.
There are no anticipated DC needs.
Plan: HOME once stable, no needs.
[2023-08-27] MEDS: HEPARIN SC (10:48)
[2023-08-27 11:21] VITALS: BP 136/82
--- NOTE | 2023-08-27 11:29 | PTCARENOTE ---
Dr Shell speaking to Pt with schedule planning manager on the phone, Pt says he is reluctant to take carvedilol, the need for it explained to Pt but Pt wishes to speak with his guncotton packer, Dr Do about it. Carvedilol not given.
[2023-08-27 11:56] LABS: Glucose - Point of Care 172 mg/dl (70-99)
--- NOTE | 2023-08-27 13:47 | W.DCSUMMARY ---
Discharge Summary
Discharge Data
Date of Admission: 08/24/23
Date of Discharge: 08/27/23
-
Pending Results: No
Hospital Course
72-year-old Bulgarian speaking male past medical history of CABG 20 years ago, hypertension, type 2 diabetes, hyperlipidemia, gout here for lightheadedness dizziness outpt heart monitor concerning for symptomatic Bradycardia. Possible complete heart
block exacerbated by Coreg, EKG showed sinus bradycardia with first-degree AV block. ECHO appreciated EF 55-60% no significant change from prior ECHO 2021. Cardiology evaluated and pacemaker was placed Wed 08/25, tolerated procedure well. Follow
up CXR noted no pneumothorax. Stay was also notable for mild Leukopenia, resolved on discharge. CAD status post CABG, asa was continued. Following pacemaker placement. Patient declined restarting Coreg as per cardio recommendations, preferred to
follow up with his cdl company driver Dr Do outpatient to consider resuming then or switching to alternate medication. Otherwise, medically stable, patient was discharged home with outpatient follow up recommendations.
Discharge Plan
-
Patient Disposition: Home (Routine Discharge)
Discharge Diagnosis/Procedures: Heart block post Pacemaker implantation, Mild Leukopenia resolved
Condition: Good
Diet: Low Cholesterol and Diabetic, Carb Controlled
Activity: As tolerated and No strenuous activity
Additional Activity: no strenuous activity or heavy lifting 1 week following discharge
Driving Restrictions: No driving for 1 week
Bathing Restrictions: OK to Shower
Blood Work: Please repeat CBC and BMP with primary care provider in 1 week of discharge.
Activity Restrictions/Additional Instructions:
Please follow up with your primary care provider in 1 week of discharge and keep your appointment with cardiology for follow up wound check pacemaker placement. Please follow up with your Mechanical [employer] Dr Do in 1-2 weeks of discharge and discuss
potentially resuming home Coreg or substituting with alternative medication.
Continue with Tylenol as needed for pacemaker incision pain. Medication is prescribed but also available over the counter. Please contact cardiology or your primary care provider if pain worsens/not well controlled with Tylenol regimen.
Please take medications as prescribed/recommended and follow up with primary care provider, cdl company driver, and/or other healthcare provider involved in your care for further adjustment to your medication regimen as necessary.
Stand Alone Forms: DC Inst - Implanted Device
Referrals:
[facility] [Provider Group] - 09/01/23 2:20 pm (Incision check appointment)
Be Manzanares MD [Family Provider] - in one week
Aidan Do MD [Active] - in one to two weeks
Additional Discharge Medication Instructions: Hold Metformin post procedure, resume on Thursday
Prescriptions:
New
acetaminophen 325 mg Tablet
650 mg PO Q4HPRN PRN (Reason: MILD PAIN) 7 Days Qty: 42 0RF
Continued
latanoprost 0.005 % Drops
1 drp BOTH EYES HS
amlodipine 2.5 mg Tablet
2.5 mg PO BID
aspirin 81 mg Tablet,Delayed Release (Dr/Ec)
81 mg PO HS
gemfibrozil 600 mg Tablet
600 mg PO BID
dorzolamide-timolol 22.3-6.8 mg/mL Drops
1 drp BOTH EYES BID
allopurinol 300 mg Tablet
300 mg PO BID
telmisartan 20 mg Tablet
20 mg PO HS
ezetimibe 10 mg Tablet
10 mg PO DAILY
rosuvastatin 10 mg Tablet
10 mg PO DAILY
Held
metformin 500 mg Tablet
500 mg PO BID
Hold Instructions: Resume on 08/28/23. On hold due to recent pacemaker placement, resume Thursday08/28/23
Discontinued
carvedilol 25 mg Tablet
25 mg PO BID
Discharge Orders:
Discharge Patient (As Directed); Ordered 08/27/23
Ordered By: Marcie Shell
Care Plan Goals
Care Plan Goals:
Problem: Readiness for enhanced knowledge related to diagnosis and treatment plan
Goal: Understand your diagnosis and treatment plan needs, including medications if applicable.
Instructions: Know your diagnosis, underlying causes and treatment plan options, including medications if applicable. Consult with your health care team to learn about your diagnosis and treatment plan, including medications if applicable.
Discharge Date and Time
Discharge Date/Time: 08/27/23 14:50
Print Language: Bulgarian
--- NOTE | 2023-08-27 14:27 | PTCARENOTE ---
Pt given D/C instructions using language line in English. Pt also given info post pacemaker from [employer] in English.
== END 2023-08-27 14:50 | disposition home or self-care (01) | DRG 244 ==
LOC: IVU 19:25
PROVIDERS: Emergency Medicine; Internal Medicine Cardiovascular Disease; ADMITTING PHYSICIAN Hospitalist; ATTENDING PHYSICIAN Internal Medicine; EMERGENCY PHYSICIAN Emergency Medicine; FAMILY PHYSICIAN Internal Medicine; OTHER PHYSICIAN Nuclear Medicine Nuclear Cardiology
PROC: 02HK3JZ Insertion of Pacemaker Lead into Right Ventricle, Percutaneous Approach (ICD-10-PCS; 2023-08-26)
PROC: 0JH606Z Insertion of Pacemaker, Dual Chamber into Chest Subcutaneous Tissue and Fascia, Open Approach (ICD-10-PCS; 2023-08-26)
PROC: B5171ZZ Fluoroscopy of Left Subclavian Vein using Low Osmolar Contrast (ICD-10-PCS; 2023-08-26)
PROC: 02H63JZ Insertion of Pacemaker Lead into Right Atrium, Percutaneous Approach (ICD-10-PCS; 2023-08-26)
DX: I44.2 Atrioventricular block, complete (principal); I25.10 Atherosclerotic heart disease of native coronary artery without angina pectoris; E11.9 Type 2 diabetes mellitus without complications; E78.00 Pure hypercholesterolemia, unspecified; T44.7X5A Adverse effect of beta-adrenoreceptor antagonists, initial encounter; I10 Essential (primary) hypertension; M10.9 Gout, unspecified; D72.819 Decreased white blood cell count, unspecified; Z79.82 Long term (current) use of aspirin; Z79.84 Long term (current) use of oral hypoglycemic drugs; Z95.1 Presence of aortocoronary bypass graft; Y92.9 Unspecified place or not applicable
CPT/HCPCS: 33208; 71045; 80048; 80053; 82962; 83036; 83735; 84100; 84443; 84484; 85025; 85027; 93005; 93306; 99285; C1785; C1892; C1898; Q9967